=== PATIENT | male | born 1945 | race Caucasian/White ===

== ENCOUNTER → 2017-12-20 | Outpatient (CLI) | payer MEDICARE, OTHER ==
--- NOTE | 2017-12-20 20:45 | CONS ---
CONSULTATION DATE OF SERVICE: 12/20/2017 This patient is a 72-year-old gentleman who has been evaluated in the sleep center for obstructive sleep apnea-hypopnea syndrome. HISTORY OF PRESENT ILLNESS/SLEEP-WAKE EVALUATION: Patient was diagnosed with obstructive sleep apnea about 8 years ago. At that time he was recommended to be started on treatment with CPAP, but the patient was not able to tolerate CPAP at that time and did not use it. At present his sleep schedule on weekdays is from around 9 p.m. until 6:30 a.m., on weekends from about 9:30 p.m. to 6:30 a.m. No problem with falling asleep. He does watch TV in his bedroom and usually sleeps on the side position with his with loud snoring and witnessed episodes of stopped breathing during sleep. The patient wakes up from sleep 4 times with nocturia, heartburn or restless legs. He kicks around during sleep with some episodes of screaming during sleep. Positive history of possible out- of-dream movements. In the morning the patient wakes up tired, has problems with memory, concentration, irritability, depression. Cofield Sleepiness Scale is in a very high range at 20. He also has sleepiness while driving the car. The patient has episodes of occasional confusion, according to his . PAST MEDICAL HISTORY: 1. Hypertension. 2. Acid reflux. 3. Hyperlipidemia. 4. TIA about 3 years ago. 5. Episodes of dizziness. PAST SURGICAL HISTORY: 1. Right shoulder surgery. 2. Right knee surgery. SOCIAL HISTORY: Negative for smoking. Alcohol consumption occasional. MEDICATIONS: 1. Omeprazole. 2. Lisinopril. 3. Clopidogrel. 4. Atorvastatin. 5. Celecoxib. REVIEW OF SYSTEMS: Multiple awakenings from sleep, sleepiness during the day, episodes of problems with memory, sometimes swelling of the legs. FAMILY HISTORY: Hypertension, hyperlipidemia, arthritis, snoring, cancer, acid reflux, during sleep, restless legs. PHYSICAL EXAMINATION: GENERAL A pleasant gentleman without distress. VITAL SIGNS: BP 127/76, HR 80, RR 16, height 5 feet 7-1/2 inches, weight 240, BMI 37.0, temperature 97.1. Oxygen saturation at room air 95%. HEENT: PERRLA, EOMI. Evaluation of oropharynx showed tongue protrudes midline; low position of soft palate. Small oropharyngeal airspace. Some restriction of nasal breathing. NECK: Wide; 17-1/2 inches in circumference. LUNGS: Clear to percussion and to auscultation. Good air exchange. No wheezing or rhonchi. HEART: S1, S2 regular. No murmurs, gallops or rubs. ABDOMEN: Obese. EXTREMITIES : No clubbing or cyanosis. DIRECTORY CLERK: Awake, alert, and oriented X3. Cranial nerves 2 to 7 intact. There is no fasciculation or atrophy. noted. No focal deficits observed. IMPRESSION: 1. Snoring, witnessed episodes of stopped breathing during sleep, small oropharyngeal airspace, history of obstructive sleep apnea diagnosed about 8 years ago, wide neck, sleepiness during the day; obstructive sleep apnea-hypopnea syndrome. 2. Significant excessive daytime sleepiness. Cofield Sleepiness Scale increased to 20. Differential diagnosis includes hypersomnia, although no history of hypnagogic hallucinations, sleep paralysis or cataplexy. 3. History of abf-yg-neuge movements during sleep; possible indication of REM sleep behavioral disorder. 4. Hypertension. 5. Acid reflux. 6. Hyperlipidemia. 7. History of transient ischemic attack. 8. Episodes of confusion. 9. Dizziness spells. 10.Status post right shoulder repair. 11.Status post right knee surgery. PLAN: 1. Polysomnography for evaluation of patient's breathing during sleep. 2. CPAP/BiPAP titration if sleep study confirms obstructive sleep apnea-hypopnea syndrome. 3. Preferable position during sleep on the side. 4. No driving if patient feels any sleepiness. Patient is aware of civil and criminal liability for unsafe driving. 5. I will see patient for follow up visit to explain results of testing and following plan. Thank you very much for referring this patient for consultation. Sincerely, Dhiraj Schmidt MD, PhD, FAASM Diplomat of [place] [employer] [place] [employer] Spice Grinder of [facility] [place] MMODL / IJN: [id number] /
== END | disposition home or self-care (01) ==
LOC: SLEEP 15:41
PROVIDERS: ATTEND Internal Medicine
DX: G47.33 Obstructive sleep apnea (adult) (pediatric) (principal); G47.61 Periodic limb movement disorder; I10 Essential (primary) hypertension; K21.9 Gastro-esophageal reflux disease without esophagitis; E78.5 Hyperlipidemia, unspecified; Z86.73 Personal history of transient ischemic attack (TIA), and cerebral infarction without residual deficits; Z79.899 Other long term (current) drug therapy; Z79.01 Long term (current) use of anticoagulants; Z79.1 Long term (current) use of non-steroidal anti-inflammatories (NSAID); Z98.890 Other specified postprocedural states
CPT/HCPCS: 99211

== ENCOUNTER → 2018-03-21 | Outpatient (CLI) | payer MEDICARE ==
--- NOTE | 2018-03-21 14:14 | PN ---
PROGRESS NOTE DATE OF SERVICE: 03/21/18 72-year-old gentleman has been followed in Sleep Center for treatment of obstructive sleep apnea-hypopnea syndrome. Recently patient had a polysomnogram and CPAP titration. Polysomnogram showed severe obstructive sleep apnea-hypopnea syndrome with apnea-hypopnea index 38.4 per hour and oxygen desaturation to 83.7%. During CPAP titration, respiration was under control with a pressure of 10 cm of water. The patient received his CPAP unit and today is his first visit with his CPAP machine. He sleeps better with the machine. I checked his CPAP unit. CPAP/BiPAP pressure is 10 cm of water. Usage is 22/30 out of nights more than 4 hours. Average usage 5.5 hours. Sleep is 12 L/minute, which is normal. Apnea-hypopnea index only 2.8 with the machine, which is totally normal. No snoring with the machine. Bradley Sleepiness Scale today is still in the high range 19. Patient sometimes experiencing discomfort in his legs during the sleep. EMG showed 78.8 periodic limb movements per hour with 2.7 microarousals per hour during titration and 45.7 periodic limb movements per hour during diagnostic night. MEDICATIONS: Lipitor, aspirin, Plavix, lisinopril, Celebrex. PHYSICAL EXAM: Patient in no distress. BP 126/77, HR 73, RR 16, height 5 feet inches and weight 239.4, BMI 36.8, temperature 97.2, oxygen saturation on room air 95%. Oropharynx low position of soft palate. Neck Supple, no JVD. Thyroid is not palpable. LUNGS Clear to percussion and to auscultation. Good air exchange. No wheezing or rhonchi. HEART S1, S2 regular. No murmurs, gallops, or rubs. ABDOMEN: Obese. Soft and nontender. Bowel sounds are present. No organomegaly appreciated. EXTREMITIES No clubbing or cyanosis. BRASS CLEANER Awake, alert, and oriented X3. Cranial nerves 2 to 7 intact. There is no fasciculation or atrophy. noted. No focal deficits observed. IMPRESSION: 1. Severe obstructive sleep apnea-hypopnea syndrome on full control with CPAP at 10 cm of water. Patient demonstrated great compliance with treatment benefitting from treatment. 2. Severe periodic limb movements during titration and significant periodic limb movements during diagnostic night. The patient sometimes awakenings from sleep because of his leg discomfort. 3. Hypertension. 4. History of some out of dream movements, no any out of dream movements presently while he is on treatment with CPAP. 5. Acid reflux. 6. Hyperlipidemia. 7. Status post transient ischemic attack about 3 years ago. 8. Episodes of dizziness in the past. 9. Status post right shoulder repair. 10.Status post right knee surgery. PLAN: 1. Patient will continue to use CPAP equipment with the same regimen every night for the whole night. 2. Losing weight. 3. Sleep hygiene with regular time in bed for at least 8 hours. 4. No driving if feeling sleepiness. 5. I will start the patient on Mirapex with smallest dose for periodic limb movements. 6. Please check iron profile including ferritin level. Low level of iron may increase risk for periodic limb movements also. Thank you very much for allowing me to participate in management of your patient. Sincerely, Dhiraj Schmidt MD, PhD, FAASM Diplomat of [place] [employer] [place] [employer] Timber Harvester Operator of [facility] [place] MMODL / LINNEAN: [id number] /
== END | disposition home or self-care (01) ==
LOC: SLEEP 11:32
PROVIDERS: ATTEND Internal Medicine
DX: G47.33 Obstructive sleep apnea (adult) (pediatric) (principal); G47.61 Periodic limb movement disorder; I10 Essential (primary) hypertension; K21.9 Gastro-esophageal reflux disease without esophagitis; E78.5 Hyperlipidemia, unspecified; Z86.73 Personal history of transient ischemic attack (TIA), and cerebral infarction without residual deficits; Z86.69 Personal history of other diseases of the nervous system and sense organs; Z98.890 Other specified postprocedural states; Z79.01 Long term (current) use of anticoagulants; Z99.89 Dependence on other enabling machines and devices; Z79.82 Long term (current) use of aspirin; Z79.899 Other long term (current) drug therapy

== ENCOUNTER → 2019-10-31 | Outpatient (CLI) | payer MEDICARE, OTHER ==
[2019-10-31 08:26] LABS: Appearance,Urine Clear (Clear); Bilirubin,Urine Negative (Negative); Blood,Urine Negative (Negative); Color,Urine Light Yellow; Glucose,Urine (UA) Negative (Negative); Ketones,Urine Negative (Negative); Leukocyte Esterase,Urine Negative (Negative); Nitrite,Urine Negative (Negative); Protein,Urine Negative (Negative); Specific Gravity,Urine 1.015 (1.001-1.035); Urobilinogen,Urine <2.0 mg/dL (<2.0)
[2019-10-31 08:28] LABS: INR 0.9 (<1.2); Partial Thromboplastin Time 24.7 sec (22.0-30.0); Prothrombin Time 10.1 sec (9.0-12.0)
[2019-10-31 08:42] LABS: HCT 40.9 % (39.0-53.0); HGB 13.4 gm/dL (13.0-17.5); MCH 29.9 pg (25.0-35.0); MCHC 32.8 g/dL (31.0-37.0); MCV 91.1 fL (80.0-100.0); Mean Platelet Volume 7.3; Platelet Count 347 k/uL (150-450); RBC 4.49 m/uL (4.30-5.90); RDW 13.5 % (11.5-15.5); WBC 6.8 k/uL (3.8-10.6)
[2019-10-31 08:51] LABS: Albumin 4.7 g/dL (3.5-5.0); Potassium 4.7 mmol/L (3.5-5.1); Total Bilirubin 0.6 mg/dL (0.2-1.3); Total Protein 7.6 g/dL (6.3-8.2)
== END | disposition home or self-care (01) ==
LOC: LABPAT 07:57
PROVIDERS: ATTEND Orthopaedic Surgery
DX: Z01.812 Encounter for preprocedural laboratory examination (principal); Z01.818 Encounter for other preprocedural examination; Z79.01 Long term (current) use of anticoagulants
CPT/HCPCS: 36415; 80053; 81003; 85027; 85610; 85730; 87070; 93005

== ENCOUNTER 2019-11-17 07:31 | Day surgery (SDC) | payer MEDICARE ==
[2019-11-06 14:09] VITALS: BMI 32.5
[~2019-11-17 07:31] MED LIST: ACETAMINOPHEN TAB 500 MG TAB PO ONE; GABAPENTIN 300 MG CAP PO ONE; LIDOCAINE 1% 20 ML VIAL (10MG/ML) FOR IV START INTRADERMA PRN; MELOXICAM 7.5 MG TAB PO ONE; MIDAZOLAM 2 MG/2 ML VIAL IV PRN; ROPIVACAINE 246.25 MG, EPINEPHrine 0.5 MG, KETOROLAC 30 MG, cloNIDine HCL/PF 80 MCG, WA... MISCELLANE ONE; TRANEXAMIC ACID 1,000 MG in SODIUM CHLORIDE 0.9% 100 ML IVPB ONE; fentaNYL (PF) 50 MCG/ML 2 ML AMP IV PRN
[2019-11-17] MEDS: LACTATED RINGERS 1,000 ML IV SCH ×2 (08:30→20:50)
[2019-11-17] MEDS ORDERED: ONDANSETRON 4 MG/2 ML VIAL IVP PRN (08:39)
[2019-11-17] MEDS ORDERED: NA PHOS,M-B/NA PHOS,DI-BA 133 ML ENEMA RECTAL PRN (08:39)
[2019-11-17] MEDS ORDERED: HYDROcodone/APAP 5-325MG 1 EACH TAB PO PRN ×2 (08:39)
[2019-11-17] MEDS ORDERED: BISACODYL 10 MG SUPP RECTAL PRN (08:39)
[2019-11-17] MEDS ORDERED: hydrOXYzine PAMOATE 25 MG CAP PO PRN (08:39)
[2019-11-17] MEDS ORDERED: MAGNESIUM HYDROXIDE 2,400 MG/10 ML CUP PO PRN (08:39)
[2019-11-17] MEDS ORDERED: HYDROmorphone 0.5 MG/0.5 ML SYRINGE IVP PRN ×3 (08:39)
[2019-11-17] MEDS ORDERED: NALOXONE 0.4 MG/ML 1 ML VIAL IV PRN (08:39)
[2019-11-17] MEDS ORDERED: DIAZEPAM 5 MG TAB PO PRN (08:39)
[2019-11-17] MEDS ORDERED: fentaNYL (PF) 50 MCG/ML 2 ML AMP IV ONE (08:40)
[2019-11-17] MEDS ORDERED: MIDAZOLAM 2 MG/2 ML VIAL IV ONE (08:40)
[2019-11-17] MEDS ORDERED: MELOXICAM 7.5 MG TAB PO SCH (09:00)
[2019-11-17] MEDS ORDERED: GLYCOPYRROLATE 0.2 MG/ML 2 ML VIAL ONE (09:04)
[2019-11-17] MEDS ORDERED: SODIUM CHLORIDE 0.9% 100 ML BAG ONE (09:04)
[2019-11-17] MEDS ORDERED: PROPOFOL 10 MG/ML 20 ML VIAL IV ONE (09:04)
[2019-11-17] MEDS ORDERED: PHENYLEPHRINE-0.9% NACL SYG 1 MG/10 ML SYRINGE ONE (09:04)
[2019-11-17] MEDS ORDERED: fentaNYL (PF) 50 MCG/ML 2 ML AMP ONE (09:04)
[2019-11-17] MEDS ORDERED: MIDAZOLAM 2 MG/2 ML VIAL ONE (09:04)
[2019-11-17] MEDS ORDERED: TRANEXAMIC ACID 1,000 MG/10 ML VIAL ONE (09:04)
[2019-11-17] MEDS ORDERED: ceFAZolin 3,000 MG in SODIUM CHLORIDE 0.9% IRRIGATIO 3,000 ML IRRIGATION ONE (09:08)
[2019-11-17] MEDS ORDERED: ROPIVACAINE 0.2%-NS ON-Q PUMP 1,090 MG, EMPTY PAIN BALL 1 EACH MISCELLANE PRN (09:22)
--- NOTE | 2019-11-17 09:24 | P.ANPRN ---
Procedure Note - Anesthesia - Nerve Block Performed Right Adductor Canal Infusion Time Out Performed: Yes Date of Procedure: 11/17/19 Procedure Start Time: 08:40 Procedure Stop Time: 08:50 Location of Patient: PreOp Indication: Acute Post-Operative Pain, Requested by Surgeon Specifically requested for management of pain by : Gaston Ozuna Sedation Type: Sedate with meaningful contact maintained Preparation: Sterile Prep Position: Supine Catheter Depth at Skin (cm): 7 Catheter: Indwelling Needle Types: Pajunk Needle Gauge: 18 Ultrasound used to visualize needle placement: Yes Ultrasound used to observe medication spread: Yes Injectate: 0.5% Ropivacaine (see comment for volume) (20 cc) Blood Aspirated: No Pain Paresthesia on Injection Noted: No Resistance on Injection: Normal Image Stored and Saved: Yes Events: Uneventful and Well Tolerated
[2019-11-17] MEDS ORDERED: LACTATED RINGERS 1,000 ML IV ONE (10:05)
--- NOTE | 2019-11-17 10:26 | P.OP ---
Date of Procedure: 11/17/19 Preoperative Diagnosis: Severe osteoarthritis right knee Postoperative Diagnosis: Severe osteoarthritis right knee Procedure(s) Performed: Right total knee arthroplasty utilizing [employer] patient specific guides Implants: Hills and Nephew Journey II CR Oxinium cruciate retaining femoral component size 6, right Hills & Nephew Journey right nonporous tibial baseplate size 5 Hills & Nephew Journey II, XLPE Deep Dished articular insert, size 11 mm, Size 5-6 right Hills & Nephew Journey BCS resurfacing oval patellar component, 32 mm All components were cemented using Palacos R bone cement. Visionaire patient specific guides The articulation is Oxinium on polyethylene. Anesthesia: spinal Surgeon: Gaston Ozuna Correctional Counselor/Case Manager #1: Lisa Cortes Estimated Blood Loss (ml): 50 Pathology: other (Bone and cartilage) Condition: stable Disposition: PACU Indications for Procedure: After failure of conservative treatment we discussed the surgical and nonsurgical treatment options at length. Patient wishes to proceed with a total knee arthroplasty. Complications specific to this procedure were discussed at length, including but not limited to infection, bleeding, stiffness, and nerve injury. Patient is aware of all these complications and informed consent was obtained Operative Findings: The operative findings are consistent with severe degenerative arthritis of the right knee Description of Procedure: Patient was seen in the preoperative area consent was reviewed and operative site was marked with a skin marker. An adductor canal pain catheter was placed by anesthesia in the preoperative area. Patient was then brought to the operating room and given preoperative antibiotics intravenously. A spinal anesthetic was administered by the anesthesia department. A tourniquet was placed on the upper thigh and the lower extremity was prepped and draped in usual sterile fashion. A gram of transexamic acid was given. A universal timeout was then performed which confirmed the patient's name, surgical site, ALLERGIES, and consent. The lower extremity was then exsanguinated and tourniquet was inflated to 250 mmHg. A standard and anterior midline approach to the knee was performed. The skin and subcutaneous tissue was dissected down to the patellar tendon. A medial parapatellar arthrotomy was then performed. The knee was then extended, the patellar was everted, and the knee was again flexed. Anterior horns of both menisci were excised, and a release was performed to the posterior medial aspect of the knee. On gross visual inspection, there was complete loss of articular cartilage in the medial and patellofemoral joint spaces. There was also significant cartilage damage in the lateral compartment. There were multiple periarticular osteophytes. The patient specific guide was placed on the distal femur, and pinned in place. Using the patient specific guide, the distal femoral cut was performed. The cutting block was then removed and the cut was checked for flatness. The appropriate 5-in-1 cutting block was then pinned in place through the holes that were drilled through the patient specific guide. The anterior condyles were cut without notching. The posterior and chamfer cuts were performed while protecting the collateral ligaments. The cutting block was then removed. Attention was then directed to the tibia. The remaining ACL was removed with a Ronguer, and the tibia was then gently subluxed forward with a large bent knee retractor. Any remaining menisci was excised. The posterior lateral corner was cauterized in order to cauterize the lateral geniculate artery. The patient specific guide for the tibia was then placed and was held in place with pins. Pinholes were then placed for rotation of the tibial component as well. Proximal tibia was then cut and sized. Next trials were then placed with the appropriate-sized insert. The knee was able to fully extend and flex to 130 and was stable throughout all range of motion. The knee was then extended, patella everted. Patella was then measured, and then using an osteotomy guide, the patella was cut at the appropriate level. The patella was then measured and drilled and the patella trial was then placed. The knee was then taken through range of motion with the patella trial and the patella tracked normally. The knee was then extended patella trial was then removed and the patella was everted. Knee was then flexed and lug holes were drilled through the femoral trial and the femoral trial was then removed. The tibial was then exposed, and the tibial broach guide was then pinned in place after it was set for the appropriate rotation to allow for the most coverage without overhang. The tibia was then reamed and broached. The cut surfaces of bone were then irrigated with pulsatile lavage. The posterior structures were injected with the ropivacaine solution. The knee was also irrigated with Irrisept solution. The components were then opened, the cement was mixed, and the components were then cemented in place. The cement was allowed to harden with the knee in full extension. While the cement was hardening, the remaining soft tissues were then injected with a ropivacaine solution, which consisted of 246.25 mg of ropivacaine, 0.5 mg of epinephrine, 30 mg of Toradol, 80 g of clonidine, and 48.45 mL of sterile water, for a total of 100 mL of fluid injected. After the cemented hardened. The tourniquet was released, and hemostasis was obtained. A second gram of transexamic acid was given. The knee was again irrigated. The knee was again taken through range of motion and found to be stable throughout all range of motion of 0-130, and the patella tracked normally. The fascia was then closed with #2 strata fix suture. The subcutaneous tissue was closed with 3-0 Vicryl and 3-0 strata fix. Dermabond glue was used for the skin and placed with the knee in flexion. The patient was placed in a sterile silver dressing. Patient was then transferred to recovery room in stable condition. The visitor information assistant WILLAM Gaona was required due the complexity surgery and the need for a skilled surgical scrub technologist. She assisted in positioning, draping, retraction, and closure of the wound.
--- NOTE | 2019-11-17 11:32 | XR ---
EXAMINATION TYPE: XR knee limited RT DATE OF EXAM: 11/17/2019 CLINICAL HISTORY: Right knee pain and arthritis status post total knee replacement. TECHNIQUE: Portable AP and crosstable lateral views of the right knee are obtained immediately posto peratively. COMPARISON: None FINDINGS: Metallic hardware from total right knee arthroplasty is seen and appears satisfactory in a lignment and position. There is evidence of recent surgery with diffuse subcutaneous gas and soft ti ssue swelling noted. IMPRESSION: METALLIC HARDWARE FROM TOTAL RIGHT KNEE ARTHROPLASTY IS SATISFACTORY IN ALIGNMENT.
[2019-11-17] MEDS ORDERED: ONDANSETRON 4 MG/2 ML VIAL IVP ONE (14:00)
[2019-11-17 19:30] VITALS: RESP 18
[2019-11-17] MEDS ORDERED: ATORVASTATIN 40 MG TAB PO SCH (21:00)
[2019-11-17] MEDS ORDERED: SENNOSIDES-DOCUSATE SODIUM 1 EACH TAB PO SCH (21:00)
[2019-11-17] MEDS: ASPIRIN 81 MG PO SCH (21:21)
[2019-11-17] MEDS: SODIUM CHLORIDE 0.9% 1,000 ML IV SCH (21:23)
--- NOTE | 2019-11-17 22:00 | P.CONS ---
History of Present Illness - Reason for Consult Consult date: 11/17/19 Medical management Requesting physician: Gaston Ozuna - Chief Complaint Right total knee arthroplasty - History of Present Illness Consultation: This is a pleasant 74-year-old patient of Dr. Henry. Chronic stable medical conditions include GERD, hypertension, hyperlipidemia and osteoarthritis in other joints 2. Has undergone a right total arthroplasty. Postprocedure pain is controlled. No nausea vomiting. Did tolerate her pain. No chest pain. Denies any cardiac history. Laying in bed comfortable. Review of systems: GEN.: None EYES: None HEENT: None NECK: None RESPIRATORY: None CARDIOVASCULAR: None GASTROINTESTINAL: None GENITOURINARY: None MUSCULOSKELETAL: [Joint pains LYMPHATICS: None HEMATOLOGICAL: None PSYCHIATRY: None NEUROLOGICAL: None Social history: Does not smoke. Alcohol occasionally. . Does help out on the farm Physical examination: VITAL SIGNS: 97.7, 71, 18, 126/77, 94% on room air GENERAL: BMI 33.2, propped up in bed comfortable. EYES: Pupils equal. Conjunctiva normal. HEENT: External appearance of nose and ears normal, oral cavity grossly normal. NECK: JVD not raised; masses not palpable. HEART: First and second heart sounds are normal; no edema. LUNGS: Respiratory rate normal; clear to auscultation. ABDOMEN: Soft, nontender, liver spleen not palpable, no masses palpable. PSYCH: Alert and oriented x3; mood and affect normal. NEUROLOGICAL: Cranial nerves grossly intact; no facial asymmetry, power and sensation grossly intact. 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 Patient is on aspirin for DVT prophylaxis per orthopedics. Patient should have his renal function checks within 3 days following discharge and follow-up his family doctor within the week. Care was discussed with the patient question were answered. Thank you Dr. Ozuna Past Medical History Past Medical History: CVA/TIA, GERD/Reflux, Hyperlipidemia, Hypertension, Osteoarthritis (OA) Additional Past Medical History / Comment(s): TIA 4 yrs ago-balance effected if getting up to fast, History of Any Multi-Drug Resistant Organisms: None Reported Past Surgical History: Orthopedic Surgery Additional Past Surgical History / Comment(s): arthroscopy rt knee, rotator cuff rt shoulder, Past Anesthesia/Blood Transfusion Reactions: No Reported Reaction Past Psychological History: No Psychological Hx Reported Smoking Status: Never smoker Past Alcohol Use History: Occasional Past Drug Use History: None Reported - Past Family History Father Family Medical History: Cancer Medications and Allergies Home Medications Medication Instructions Recorded Confirmed Type Atorvastatin [Lipitor] 40 mg PO HS 02/02/15 11/17/19 History Clopidogrel [Plavix] 75 mg PO DAILY 02/02/15 11/17/19 History Lisinopril-Hctz 20-25 mg 1 tab PO DAILY 02/02/15 11/17/19 History [Zestoretic 20-25] Aspirin [Adult Low Dose Aspirin EC] 81 mg PO DAILY 11/06/19 11/17/19 History Ibuprofen 600 mg PO BID PRN 11/06/19 11/17/19 History Allergies Allergy/AdvReac Type Severity Reaction Status Date / Time No Known Allergies Allergy Verified 11/17/19 08:10 Physical Exam Vitals: Vital Signs Temp Pulse Resp BP Pulse Ox 11/17/19 19:30 97.7 F 71 18 126/77 94 L 11/17/19 16:00 65 16 11/17/19 15:39 97.9 F 72 18 151/77 93 L 11/17/19 12:30 65 16 139/75 99 11/17/19 12:00 68 16 131/74 98 11/17/19 11:45 77 16 129/64 92 L 11/17/19 11:30 74 16 123/65 93 L 11/17/19 11:15 72 16 123/63 95 11/17/19 10:59 96.8 F L 77 16 118/64 95 11/17/19 08:55 70 16 121/59 100 11/17/19 07:56 98.3 F 84 16 169/76 96 Intake and Output 11/17/19 11/17/19 11/17/19 06:59 14:59 22:59 Intake Total 1651 360 Output Total 50 Balance 1601 360 Intake: IV 1651 Oral 360 Output: Estimated Blood Loss 50 Other: Weight 102 kg 102 kg
[2019-11-18] MEDS: SODIUM CHLORIDE 0.9% 1,000 ML IV SCH (00:11)
[2019-11-18 02:08] VITALS: PULSE 62; TEMP 98.6
[2019-11-18 07:50] VITALS: BP 133/78
[2019-11-18 07:57] LABS: Basophils # (A) 0.2 k/uL (0-0.2); Basophils % (A) 2 %; Eosinophils # (A) 0.2 k/uL (0-0.7); Eosinophils % (A) 2 %; HCT 36.9 % (39.0-53.0); HGB 11.8 gm/dL (13.0-17.5); Lymphocytes % (A) 12 %; MCH 29.4 pg (25.0-35.0); MCV 91.7 fL (80.0-100.0); Mean Platelet Volume 7.9; Monocytes # (A) 0.5 k/uL (0-1.0); Monocytes % (A) 6 %; Neutrophils # (A) 6.6 k/uL (1.3-7.7); Neutrophils % (A) 77 %; Platelet Count 274 k/uL (150-450); RBC 4.02 m/uL (4.30-5.90); RDW 13.5 % (11.5-15.5); WBC 8.6 k/uL (3.8-10.6)
--- NOTE | 2019-11-18 08:11 | P.PN ---
Progress Note - Text Anesthesia POD 1 0740. Patient is status post right TKR under spinal anesthesia with a right adductor canal catheter placed for postoperative pain relief. With ropivacaine 0.2% running at 8 cc's per hour, the patient's VAS is (0, 2). Catheter site is clean dry and intact.
[2019-11-18] MEDS ORDERED: CLOPIDOGREL 75 MG TAB PO SCH (09:00)
[2019-11-18] MEDS: ASPIRIN 81 MG PO SCH (09:03)
--- NOTE | 2019-11-18 09:21 | P.DS ---
Providers Expected date of discharge: 11/18/19 Attending physician: Gaston Ozuna Consults: 11/17/19 08:39 Consult Physician Routine Consulting Provider: Jimy Morales Consult Reason/Comments: medical management and anticoagulation Do you want consulting provider notified?: Yes Primary care physician: Micky Henry - Discharge Diagnosis(es) (1) Osteoarthritis of right knee Current Visit: Yes Status: Acute (2) S/P total knee arthroplasty Current Visit: Yes Status: Acute Hospital Course: This is a 74-year-old male with known history of degenerative arthritis of the right knee. The patient presents for evaluation. After discussion and conside ration patient elects to proceed with total knee arthroplasty. The patient is seen preoperatively by Dr. Ozuna and medically cleared for surgery by their primary care physician. Patient is admitted to [facility] on 11/17/2019 for total knee arthroplasty. The procedures performed without complication or sequelae. The patient is doing well postoperatively. Labs and vital signs are stable on day of discharge. On day of discharge patient's knee incision is healing well. There is minimal erythema. There is no drainage noted at this time. There is minimal soft tissue swelling to the knee. Patient has full foot and ankle motion without difficulty or pain. Calf is soft and nontender to palpation. Neurovascular status to the right lower extremity is intact. Patient will resume his Plavix with aspirin for DVT prophylaxis. Patient is discharged home in good condition. Opioid start talking form is reviewed and signed at patient bedside. Please see med rec for accurate list of home medications. Plan - Discharge Summary Discharge Rx Participant: No New Discharge Prescriptions: New Aspirin [Adult Low Dose Aspirin EC] 81 mg PO BID 30 Days #60 tablet. HYDROcodone/APAP 5-325MG [[place] 5-325] 1 - 2 tab PO Q6HR PRN #56 tab PRN Reason: Pain Sennosides [Senokot] 2 tab PO DAILY PRN #60 tablet PRN Reason: Constipation No Action Clopidogrel [Plavix] 75 mg PO DAILY Lisinopril-Hctz 20-25 mg [Zestoretic 20-25] 1 tab PO DAILY Atorvastatin [Lipitor] 40 mg PO HS Aspirin [Adult Low Dose Aspirin EC] 81 mg PO DAILY Ibuprofen 600 mg PO BID PRN PRN Reason: Pain Discharge Medication List Atorvastatin [Lipitor] 40 mg PO HS 02/02/15 [History] Clopidogrel [Plavix] 75 mg PO DAILY 02/02/15 [History] Lisinopril-Hctz 20-25 mg [Zestoretic 20-25] 1 tab PO DAILY 02/02/15 [History] Aspirin [Adult Low Dose Aspirin EC] 81 mg PO DAILY 11/06/19 [History] Ibuprofen 600 mg PO BID PRN 11/06/19 [History] Aspirin [Adult Low Dose Aspirin EC] 81 mg PO BID 30 Days #60 tablet. 11/18/19 [Rx] HYDROcodone/APAP 5-325MG [[place] 5-325] 1 - 2 tab PO Q6HR PRN #56 tab 11/18/19 [Rx] Sennosides [Senokot] 2 tab PO DAILY PRN #60 tablet 11/18/19 [Rx] Follow up Appointment(s)/Referral(s): Micky Henry MD [Primary Care Provider] - 1 Week Gaston Ozuna DO [Doctor of Osteopathic Medicine] - 12/01/19 9:20 am Ambulatory/Diagnostic Orders: Continuous Passive Motion (CPM) Machine [DME.AMB1] Time Frame: 3 Weeks, Location: None Selected Activity/Diet/Wound Care/Special Instructions: BMP in 3 days upon discharge. Weightbearing as tolerated with a walker. CPM 5-6h daily. Leave dressing intact. May be removed by home care nurse or by patient in 10 days. May shower with dressing on. Plavix and aspirin 81mg BID for DVT prophylaxis. Recommend use of compression stockings daily for at least 2 weeks during the day to help prevent swelling and blood clots. May remove at night before sleeping. Please follow up with [facility] and call with any questions or concerns, . Discharge Disposition: HOME WITH HOME HEALTH SERVICES
--- NOTE | 2019-11-19 00:11 | P.PN ---
Progress Note - Text Progress Note Date: 11/18/19 - Chief Complaint Right total knee arthroplasty Interval history: This is a pleasant 74-year-old patient of Dr. Henry. Chronic stable medical conditions include GERD, hypertension, hyperlipidemia and osteoarthritis in other joints 2. Has undergone a right total arthroplasty. Today-sitting up. Feeling stable. No nausea vomiting. Did tolerate her diet. Some pain of the operative site. Did work for therapy. Review of systems: Was done for constitutional, cardiovascular, GI, pulmonary. relevant finding as above Current medications reviewed in today's electronic records Physical examination: VITAL SIGNS: 98.6, 62, 18, 133/78, 33% room air GENERAL: Sitting up in a chair, comfortable. EYES: Pupils equal. Conjunctiva normal. HEENT: External appearance of nose and ears normal, oral cavity grossly normal. NECK: JVD not raised; masses not palpable. HEART: First and second heart sounds are normal; no edema. LUNGS: Respiratory rate normal; clear to auscultation. ABDOMEN: Soft, nontender, liver spleen not palpable, no masses palpable. PSYCH: Alert and oriented x3; mood and affect normal. 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 Continue current medication treatment plan. Follow-up with PCP in a week Thank you Dr. Ozuna
== END 2019-11-18 13:54 | disposition home health service (06) ==
LOC: OR 07:31 → 4SSUR 10:57 → OR 11-18 13:54
PROVIDERS: ATTEND Orthopaedic Surgery
DX: I10 Essential (primary) hypertension (principal); M17.11 Unilateral primary osteoarthritis, right knee; K21.9 Gastro-esophageal reflux disease without esophagitis; E78.5 Hyperlipidemia, unspecified; I12.9 Hypertensive chronic kidney disease with stage 1 through stage 4 chronic kidney disease, or unspecified chronic kidney disease; N18.3 Chronic kidney disease, stage 3 (moderate); R26.81 Unsteadiness on feet; R94.4 Abnormal results of kidney function studies; Z97.3 Presence of spectacles and contact lenses; Z83.3 Family history of diabetes mellitus; Z82.49 Family history of ischemic heart disease and other diseases of the circulatory system; Z86.73 Personal history of transient ischemic attack (TIA), and cerebral infarction without residual deficits; N52.9 Male erectile dysfunction, unspecified; G89.29 Other chronic pain; M54.9 Dorsalgia, unspecified; E66.9 Obesity, unspecified; Z68.32 Body mass index [BMI] 32.0-32.9, adult; Z79.02 Long term (current) use of antithrombotics/antiplatelets; Z79.82 Long term (current) use of aspirin; Z79.899 Other long term (current) drug therapy; Z79.1 Long term (current) use of non-steroidal anti-inflammatories (NSAID)
CPT/HCPCS: 97161; 64448; 76942; 85025; 88300; 73560; 27447; C1713; C1776; J2250; J0171; J0690 ×3; J2405; J3010; J1885; J2795 ×2; J0735

== ENCOUNTER 2020-01-02 17:15 | Inpatient (IN) | payer MEDICARE, OTHER ==
[2020-01-02] MEDS ORDERED: SODIUM CHLORIDE 0.9% 1,000 ML IV STA (17:49)
[2020-01-02] MEDS ORDERED: SODIUM CHLORIDE 0.9% 500 ML 500 ML IV STA (17:49)
--- NOTE | 2020-01-02 17:49 | ED ---
Recheck HPI - General Chief Complaint: Recheck/Abnormal Lab/Rx Stated Complaint: Chest Pain Time Seen by Provider: 01/02/20 17:36 Source: patient, EMS, RN notes reviewed, old records reviewed Mode of arrival: EMS Limitations: no limitations - History of Present Illness Initial Comments: This is a 74-year-old male presents today for evaluation of weakness not feeling well dizziness, patient is a facility transfer from outside hospital. Patient has no complaints of chest pain currently but had elevated troponin per outside facility with OB have some EKG changes. Patient is at this time he feels well his blood pressures blood prior facility but he states with bolus of fluid resuscitation feels better denying any other complaints MD Complaint: abnormal lab (Elevated troponin low blood pressure) -: unknown Returns Today for: other (Patient was transferred to our facility for further evaluation by cardiology) Symptoms Since Prior Visit: no new symptoms Associated Symptoms: chest pain (Some chest pain and dizziness and prior facility), shortness of breath Treatments Prior to Arrival: other medications (IV hydration) - Related Data Home Medications Medication Instructions Recorded Confirmed Atorvastatin [Lipitor] 40 mg PO HS 02/02/15 11/17/19 Clopidogrel [Plavix] 75 mg PO DAILY 02/02/15 11/17/19 Lisinopril-Hctz 20-25 mg 1 tab PO DAILY 02/02/15 11/17/19 [Zestoretic 20-25] Aspirin [Adult Low Dose Aspirin EC] 81 mg PO DAILY 11/06/19 11/17/19 Ibuprofen 600 mg PO BID PRN 11/06/19 11/17/19 Previous Rx's Medication Instructions Recorded Aspirin [Adult Low Dose Aspirin EC] 81 mg PO BID 30 Days #60 tablet. 11/18/19 HYDROcodone/APAP 5-325MG [[place] 1 - 2 tab PO Q6HR PRN #56 tab 11/18/19 5-325] Sennosides [Senokot] 2 tab PO DAILY PRN #60 tablet 11/18/19 Allergies Allergy/AdvReac Type Severity Reaction Status Date / Time No Known Allergies Allergy Verified 01/02/20 17:34 Review of Systems ROS Statement: Those systems with pertinent positive or pertinent negative responses have been documented in the HPI. ROS Other: All systems not noted in ROS Statement are negative. Past Medical History Past Medical History: Hyperlipidemia, Hypertension History of Any Multi-Drug Resistant Organisms: None Reported Past Surgical History: Orthopedic Surgery Additional Past Surgical History / Comment(s): shoulder, knee Past Psychological History: No Psychological Hx Reported Smoking Status: Never smoker Past Alcohol Use History: Occasional Past Drug Use History: None Reported General Exam Limitations: no limitations General appearance: alert, in no apparent distress Head exam: Present: atraumatic, normocephalic, normal inspection Eye exam: Present: normal appearance, PERRL, EOMI. Absent: scleral icterus, conjunctival injection, periorbital swelling ENT exam: Present: normal exam, mucous membranes moist Neck exam: Present: normal inspection. Absent: tenderness, meningismus, lymphadenopathy Respiratory exam: Present: normal lung sounds bilaterally. Absent: respiratory distress, wheezes, rales, rhonchi, stridor Cardiovascular Exam: Present: regular rate, normal rhythm, normal heart sounds. Absent: systolic murmur, diastolic murmur, rubs, gallop, clicks GI/Abdominal exam: Present: soft, normal bowel sounds. Absent: distended, ten derness, guarding, rebound, rigid Extremities exam: Present: normal inspection, full ROM, normal capillary refill. Absent: tenderness, pedal edema, joint swelling, calf tenderness Back exam: Present: normal inspection Neurological exam: Present: alert, oriented X3, CN II-XII intact Psychiatric exam: Present: normal affect, normal mood Skin exam: Present: warm, dry, intact, normal color. Absent: rash Course Vital Signs 01/02/20 01/02/20 17:28 18:00 Temperature 98.0 F Pulse Rate 84 79 Respiratory 20 19 Rate Blood Pressure 121/78 106/74 O2 Sat by Pulse 98 96 Oximetry - Reevaluation(s) Reevaluation #1: 01/02/20 18:11 Medical records reviewed 01/02/20 19:38 Outpatient lab values are reviewed and transfer paperwork is reviewed - Consultations Consultation #1: Spoke with Dr. Morales is agreeable for admission Medical Decision Making - Medical Decision Making 74 male to the ER for evaluation patient will be admitted for cardiology to evaluate further regarding elevated troponin patient is in acute renal failure dehydration weakness. - Lab Data Result diagrams: 01/02/20 17:55 01/02/20 17:55 Lab Results 01/02/20 01/02/20 01/02/20 Range/Units 17:55 17:55 17:55 WBC 14.0 H (3.8-10.6) k/uL RBC 4.00 L (4.30-5.90) m/uL Hgb 11.5 L (13.0-17.5) gm/dL Hct 35.5 L (39.0-53.0) % MCV 88.6 (80.0-100.0) fL MCH 28.7 (25.0-35.0) pg MCHC 32.4 (31.0-37.0) g/dL RDW 13.9 (11.5-15.5) % Plt Count 330 (150-450) k/uL Neutrophils % 75 % Lymphocytes % 18 % Monocytes % 5 % Eosinophils % 1 % Basophils % 0 % Neutrophils # 10.5 H (1.3-7.7) k/uL Lymphocytes # 2.5 (1.0-4.8) k/uL Monocytes # 0.6 (0-1.0) k/uL Eosinophils # 0.2 (0-0.7) k/uL Basophils # 0.0 (0-0.2) k/uL PT (9.0-12.0) sec INR (<1.2) APTT (22.0-30.0) sec Sodium 135 L (137-145) mmol/L Potassium 4.7 (3.5-5.1) mmol/L Chloride 105 (98-107) mmol/L Carbon Dioxide 18 L (22-30) mmol/L Anion Gap 12 mmol/L BUN 74 H (9-20) mg/dL Creatinine 2.34 H (0.66-1.25) mg/dL Est GFR (CKD-EPI)AfAm 30 (>60 ml/min/1.73 sqM) Est GFR (CKD-EPI)NonAf 26 (>60 ml/min/1.73 sqM) Glucose 96 (74-99) mg/dL Calcium 8.6 (8.4-10.2) mg/dL Magnesium 1.9 (1.6-2.3) mg/dL Total Bilirubin 0.4 (0.2-1.3) mg/dL AST 23 (17-59) U/L ALT 14 (4-49) U/L Alkaline Phosphatase 66 (38-126) U/L NT-Pro-B Natriuret Pep 466 pg/mL Total Protein 6.3 (6.3-8.2) g/dL Albumin 3.7 (3.5-5.0) g/dL Lipase 1090 H (23-300) U/L 01/02/20 Range/Units 17:55 WBC (3.8-10.6) k/uL RBC (4.30-5.90) m/uL Hgb (13.0-17.5) gm/dL Hct (39.0-53.0) % MCV (80.0-100.0) fL MCH (25.0-35.0) pg MCHC (31.0-37.0) g/dL RDW (11.5-15.5) % Plt Count (150-450) k/uL Neutrophils % % Lymphocytes % % Monocytes % % Eosinophils % % Basophils % % Neutrophils # (1.3-7.7) k/uL Lymphocytes # (1.0-4.8) k/uL Monocytes # (0-1.0) k/uL Eosinophils # (0-0.7) k/uL Basophils # (0-0.2) k/uL PT 10.0 (9.0-12.0) sec INR 1.0 (<1.2) APTT 21.8 L (22.0-30.0) sec Sodium (137-145) mmol/L Potassium (3.5-5.1) mmol/L Chloride (98-107) mmol/L Carbon Dioxide (22-30) mmol/L Anion Gap mmol/L BUN (9-20) mg/dL Creatinine (0.66-1.25) mg/dL Est GFR (CKD-EPI)AfAm (>60 ml/min/1.73 sqM) Est GFR (CKD-EPI)NonAf (>60 ml/min/1.73 sqM) Glucose (74-99) mg/dL Calcium (8.4-10.2) mg/dL Magnesium (1.6-2.3) mg/dL Total Bilirubin (0.2-1.3) mg/dL AST (17-59) U/L ALT (4-49) U/L Alkaline Phosphatase (38-126) U/L NT-Pro-B Natriuret Pep pg/mL Total Protein (6.3-8.2) g/dL Albumin (3.5-5.0) g/dL Lipase (23-300) U/L - EKG Data -: EKG Interpreted by Me (EKG shows sinus of 83, DC 170, QRS 90, QTc 460) Critical Care Time Critical Care Time: Yes Total Critical Care Time: 31 Disposition Clinical Impression: Dizziness, Elevated troponin, ARF (acute renal failure), Weakness Disposition: ADMITTED IP TO THIS [facility] Condition: Good Is patient prescribed a controlled substance at d/c from ED?: No Referrals: Micky Henry MD [Primary Care Provider] - 1-2 days
[2020-01-02 18:28] LABS: Basophils % (A) 0 %; Eosinophils # (A) 0.2 k/uL (0-0.7); Eosinophils % (A) 1 %; HCT 35.5 % (39.0-53.0); HGB 11.5 gm/dL (13.0-17.5); Lymphocytes # (A) 2.5 k/uL (1.0-4.8); Lymphocytes % (A) 18 %; MCH 28.7 pg (25.0-35.0); MCHC 32.4 g/dL (31.0-37.0); MCV 88.6 fL (80.0-100.0); Mean Platelet Volume 7.3; Monocytes # (A) 0.6 k/uL (0-1.0); Monocytes % (A) 5 %; Neutrophils # (A) 10.5 k/uL (1.3-7.7); Neutrophils % (A) 75 %; Platelet Count 330 k/uL (150-450); RDW 13.9 % (11.5-15.5)
[2020-01-02 18:42] LABS: Partial Thromboplastin Time 21.8 sec (22.0-30.0)
[2020-01-02 18:54] LABS: Albumin 3.7 g/dL (3.5-5.0); Calcium 8.6 mg/dL (8.4-10.2); Magnesium 1.9 mg/dL (1.6-2.3); Potassium 4.7 mmol/L (3.5-5.1); Total Bilirubin 0.4 mg/dL (0.2-1.3); Total Protein 6.3 g/dL (6.3-8.2)
[2020-01-02] MEDS ORDERED: ASPIRIN 81 MG PO STA (19:38)
[2020-01-02] MEDS ORDERED: NITROGLYCERIN SL TABS 0.4 MG TAB SUBLINGUAL PRN (19:38)
[2020-01-02] MEDS: SODIUM CHLORIDE 0.9% 1,000 ML IV SCH (19:59)
[2020-01-03] MEDS: SODIUM CHLORIDE 0.9% 1,000 ML IV SCH ×2 (05:45→15:12)
[2020-01-03 06:42] LABS: HCT 32.4 % (39.0-53.0); HGB 10.5 gm/dL (13.0-17.5); MCH 28.8 pg (25.0-35.0); MCHC 32.4 g/dL (31.0-37.0); MCV 89.1 fL (80.0-100.0); Mean Platelet Volume 7.1; Platelet Count 260 k/uL (150-450); RBC 3.64 m/uL (4.30-5.90); RDW 14.3 % (11.5-15.5); WBC 10.2 k/uL (3.8-10.6)
[2020-01-03 06:55] LABS: Calcium 8.3 mg/dL (8.4-10.2); Potassium 4.6 mmol/L (3.5-5.1)
--- NOTE | 2020-01-03 08:39 | P.CRDCN ---
History of Present Illness Consult date: 01/03/20 Requesting physician: Jimy Morales Reason for Consult (text): Abnormal troponin Chief complaint: Blurred vision History of present illness: This is a pleasant 74-year-old gentleman with history of hypertension, hyperlipidemia, BPH, GERD, osteoarthritis, obstructive sleep apnea, prior TIA, nonsmoker, who presented to [facility] with symptoms of blurred vision he denies any overt dizziness or lightheadedness, no shortness of breath, no chest discomfort, no palpitations. Patient states he does get a lightheaded feeling when he goes from a sitting to standing position too quickly but he states that he's been experiencing this for several years. Patient does state that he underwent right knee surgery in November of this year. Overall the patient states he's been eating well at home, but has not been drinking enough fluids, he denies any diarrhea, no vomiting. His blood pressure on presentation to [facility] was 70/40 with a heart rate in the 100, afebrile, lab data from [facility], sodium 136, potassium 4.5, chloride 101, CO2 20, glucose 142, BUN 73, creatinine 2.6, white blood cell count 15.6, hemoglobin 11.7, hematocrit 35.7, platelet count 333. Magnesium 1.8, troponin 0.043, chest x-ray did not reveal any acute process. EKG on presentation here showed a normal sinus rhythm with peaked T waves. Lab data performed on arrival here, white b lood cell count 14, 10.2 this morning, hemoglobin 11.5, 10.5 this morning, platelet count 260. Sodium 135, potassium 4.7, BUN 74, creatinine 2.3, magnesium 1.9. Troponin 0.052, 0.055, 0.035. Lipase 1090. AST and ALT are normal. This morning's labs after hydration, sodium 136, potassium 4.6, BUN 62, creatinine 1.8. At pressure this morning 92/56 with a heart rate in the 80s, 98% on room air. Past Medical History Past Medical History: Hyperlipidemia, Hypertension History of Any Multi-Drug Resistant Organisms: None Reported Past Surgical History: Orthopedic Surgery Additional Past Surgical History / Comment(s): shoulder, knee Past Psychological History: No Psychological Hx Reported Smoking Status: Never smoker Past Alcohol Use History: Occasional Past Drug Use History: None Reported Medications and Allergies Home Medications Medication Instructions Recorded Confirmed Type Atorvastatin [Lipitor] 40 mg PO HS 02/02/15 01/02/20 History Clopidogrel [Plavix] 75 mg PO DAILY 02/02/15 01/02/20 History Lisinopril-Hctz 20-25 mg 1 tab PO DAILY 02/02/15 01/02/20 History [Zestoretic 20-] Aspirin [Adult Low Dose Aspirin EC] 81 mg PO DAILY 11/06/19 01/02/20 History Allergies Allergy/AdvReac Type Severity Reaction Status Date / Time No Known Allergies Allergy Verified 01/02/20 20:09 Physical Exam Vitals: Vital Signs Temp Pulse Pulse Resp BP BP Pulse Ox 01/03/20 08:00 97.5 F L 83 20 93/56 98 01/03/20 04:36 18 01/03/20 04:00 97.9 F 62 18 91/49 98 01/03/20 00:38 18 01/02/20 22:48 97.4 F L 67 18 98/50 97 01/02/20 21:39 97.9 F 86 15 111/72 97 01/02/20 19:59 98.1 F 68 15 94/65 97 01/02/20 18:00 79 19 106/74 96 01/02/20 17:28 98.0 F 84 20 121/78 98 Intake and Output 01/02/20 01/03/20 01/03/20 22:59 06:59 14:59 Other: Voiding Method Toilet # Voids 2 Weight 97.522 kg PHYSICAL EXAMINATION: GENERAL: 74-year-old gentleman in no acute distress at the time of my examination HEENT: Head is atraumatic, normocephalic. Pupils equal, round. Sclera anicteric. Conjunctiva are clear. Mucous membranes of the mouth are moist. Neck is supple. There is no elevated jugular venous pressure. No carotid bruit is heard. HEART EXAMINATION: Heart S1 S2 1 systolic murmur is heard CHEST EXAMINATION: Lungs are clear to auscultation and precussion. No chest wall tenderness is noted on palpation or with deep breathing. ABDOMEN: Soft, nontender. Bowel sounds are heard. No organomegaly noted. EXTREMITIES: 2+ peripheral pulses with no evidence of peripheral edema and no calf tenderness noted. NEUROLOGIC patient is awake, alert and oriented 3 . . Results 01/03/20 06:30 01/03/20 05:52 Cardiac Enzymes 01/02/20 01/02/20 01/02/20 Range/Units 17:55 17:55 23:40 AST 23 (17-59) U/L Troponin I 0.052 H* 0.055 H* (0.000-0.034) ng/mL 01/03/20 Range/Units 05:52 AST (17-59) U/L Troponin I 0.035 H* (0.000-0.034) ng/mL Coagulation 01/02/20 Range/Units 17:55 PT 10.0 (9.0-12.0) sec APTT 21.8 L (22.0-30.0) sec Lipids 01/03/20 Range/Units 05:52 Triglycerides 125 (<150) mg/dL Cholesterol 134 (<200) mg/dL HDL Cholesterol 35 L (40-60) mg/dL CBC 01/02/20 01/03/20 Range/Units 17:55 06:30 WBC 14.0 H 10.2 (3.8-10.6) k/uL RBC 4.00 L 3.64 L (4.30-5.90) m/uL Hgb 11.5 L 10.5 L (13.0-17.5) gm/dL Hct 35.5 L 32.4 L (39.0-53.0) % Plt Count 330 260 (150-450) k/uL Comprehensive Metabolic Panel 01/02/20 01/03/20 Range/Units 17:55 05:52 Sodium 135 L 136 L (137-145) mmol/L Potassium 4.7 4.6 (3.5-5.1) mmol/L Chloride 105 108 H (98-107) mmol/L Carbon Dioxide 18 L 19 L (22-30) mmol/L BUN 74 H 62 H (9-20) mg/dL Creatinine 2.34 H 1.80 H (0.66-1.25) mg/dL Glucose 96 85 (74-99) mg/dL Calcium 8.6 8.3 L (8.4-10.2) mg/dL AST 23 (17-59) U/L ALT 14 (4-49) U/L Alkaline Phosphatase 66 (38-126) U/L Total Protein 6.3 (6.3-8.2) g/dL Albumin 3.7 (3.5-5.0) g/dL Current Medications Generic Name Dose Route Start Last Admin Trade Name Kevinq PRN Reason Stop Dose Admin Aspirin 325 mg 01/03/20 09:00 Aspirin PO DAILY MYLES Sodium Chloride 1,000 mls @ 100 mls/hr 01/02/20 19:45 01/03/20 05:45 Saline 0.9% IV Not Given .Q10H MYLES Nitroglycerin 0.4 mg 01/02/20 19:38 Nitrostat SUBLINGUAL Q5M PRN Chest Pain Intake and Output 01/02/20 01/03/20 01/03/20 22:59 06:59 14:59 Other: Voiding Method Toilet # Voids 2 Weight 97.522 kg 01/03/20 06:30 01/03/20 05:52 EKG Interpretations (text) EKG shows a normal sinus rhythm with no acute changes, inferior Q waves noted Assessment and Plan Plan: Assessment and plan #1 symptoms of blurred vision with no associated dizziness or lightheadedness #2 hypotension could be secondary to dehydration #3 renal insufficiency, likely secondary to dehydration #4 hypertension #5 hyperlipidemia #6 obstructive sleep apnea #7 recent right knee surgery in November of this year #8 GERD #9 prior TIA #10 abnormal troponins, could be secondary to abnormal renal function Plan We will obtain an echocardiogram with Doppler study. Continue hydration, continue to monitor renal function. We will check orthostatic heart rate and blood pressure every shift. Continue to monitor for any tachycardia or bradycardia arrhythmias. We will also request a d-dimer be performed. Decrease aspirin to 81 mg daily. Further recommendations to follow. DNP note has been reviewed, I agree with a documented findings and plan of care. Patient was seen and examined.
[2020-01-03] MEDS ORDERED: ASPIRIN 325 MG TAB PO SCH (09:00)
[2020-01-03] MEDS: ASPIRIN 81 MG PO SCH (09:08)
--- NOTE | 2020-01-03 12:33 | NM ---
EXAMINATION TYPE: NM pul perfusion DATE OF EXAM: 01/03/2020 COMPARISON: NONE HISTORY: Shortness of breath Following administration of 5.3 mCi Tc 99m MAA. Images obtained post injection. FINDINGS: Diffusion in the lungs is normal. There are no perfusion defects. Ventilation was not perfo rmed. IMPRESSION: Normal perfusion study.
--- NOTE | 2020-01-03 14:05 | P.HPIM ---
History of Present Illness H&P Date: 01/03/20 Chief Complaint: Dizzy History of presenting complaint: This is a very pleasant [address] Henry. Chronic stable medical conditions include hypertension, hyperlipidemia, obesity. Patient yesterday had an episode where his vision became blurry: Dizzy lightheaded. Loss of about 5 minutes. Decided to go down to the [facility]. He had episode of nearly passing out. No chest pain no palpitation. No change in speech headache or any focal weakness. No tongue biting or incontinence. He was transferred down here. At the transferring hospital.-some troponin leak. No palpitations. Given IV fluids. Also renal function has been off Review of systems: GEN.: Tired EYES: As above HEENT: None NECK: None RESPIRATORY: None CARDIOVASCULAR: None GASTROINTESTINAL: None GENITOURINARY: None MUSCULOSKELETAL: None LYMPHATICS: None HEMATOLOGICAL: None PSYCHIATRY: None NEUROLOGICAL: No focal Past medical history to include: Hypertension, hyperlipidemia, TIA, obesity Social history: Doesn't smoke. Alcohol occasionally. . Retired [employer] Family history: Reviewed, noncontributory to presentation Physical examination: VITAL SIGNS: 98, 84, 20, 94/65, 97% on room air-upon presentation GENERAL: BMI 31.5, laying in bed after bowel. EYES: Pupils equal. Conjunctiva normal. HEENT: External appearance of nose and ears normal, oral cavity grossly normal. NECK: JVD not raised; masses not palpable. HEART: First and second heart sounds are normal; no edema. LUNGS: Respiratory rate normal; clear to auscultation. ABDOMEN: Soft, nontender, liver spleen not palpable, no masses palpable. PSYCH: Alert and oriented x3; mood and affect normal. NEUROLOGICAL: Cranial nerves grossly intact; no facial asymmetry, power and sensation grossly intact. LYMPHATICS: No lymph nodes palpable in the axilla and neck INVESTIGATIONS, reviewed in the clinical context: White count 14 hemoglobin 11.5 repeat 10.5 potassium 4.7 bun 74 creatinine 2.34 This morning-bun 62 creatinine 1.80 Labs from October 31-bun 44 creatinine 1.67 Troponin I 0.055, 0.035 EKG tracing personally reviewed by me-normal sinus rhythm nonspecific findings Assessment: -This patient presents with one-day history of bloody dizzy lightheaded and weak tired likely from acute kidney injury. Patient has no focal neurological symptoms. No chronic symptoms. IV hydration slowly making him feel better. -Acute kidney injury, prerenal -Chronic kidney disease suspect nephrosclerosis with a baseline creatinine of 1.6 -Essential hypertension -Hyperlipidemia -Obesity BMI 31.5 -Reactive hypotension on presentation for volume depletion -Troponin leak in the setting of renal failure, with no evidence of acute coronary coronary syndrome. No chest pain Plan: Patient's Zestoretic has been held. Continue with aspirin. Renal function is improving.. No need for any further neurological testing. Repeat labs in the morning. Cardiology was consulted. Past Medical History Past Medical History: Hyperlipidemia, Hypertension History of Any Multi-Drug Resistant Organisms: None Reported Past Surgical History: Orthopedic Surgery Additional Past Surgical History / Comment(s): shoulder, knee Past Psychological History: No Psychological Hx Reported Smoking Status: Never smoker Past Alcohol Use History: Occasional Past Drug Use History: None Reported Medications and Allergies Home Medications Medication Instructions Recorded Confirmed Type Atorvastatin [Lipitor] 40 mg PO HS 02/02/15 01/02/20 History Clopidogrel [Plavix] 75 mg PO DAILY 02/02/15 01/02/20 History Lisinopril-Hctz 20-25 mg 1 tab PO DAILY 02/02/15 01/02/20 History [Zestoretic 20-25] Aspirin [Adult Low Dose Aspirin EC] 81 mg PO DAILY 11/06/19 01/02/20 History Allergies Allergy/AdvReac Type Severity Reaction Status Date / Time No Known Allergies Allergy Verified 01/02/20 20:09 Physical Exam Vitals: Vital Signs Temp Pulse Pulse Resp BP BP Pulse Ox 01/03/20 08:00 97.5 F L 83 20 93/56 98 01/03/20 04:36 18 01/03/20 04:00 97.9 F 62 18 91/49 98 01/03/20 00:38 18 01/02/20 22:48 97.4 F L 67 18 98/50 97 01/02/20 21:39 97.9 F 86 15 111/72 97 01/02/20 19:59 98.1 F 68 15 94/65 97 01/02/20 18:00 79 19 106/74 96 01/02/20 17:28 98.0 F 84 20 121/78 98 Intake and Output 01/02/20 01/03/20 01/03/20 22:59 06:59 14:59 Intake Total 240 Balance 240 Intake: Oral 240 Other: Voiding Method Toilet # Voids 2 Weight 97.522 kg Results CBC & Chem 7: 01/03/20 06:30 01/03/20 05:52 Labs: Abnormal Lab Results - Last 24 Hours (Table) 01/02/20 01/02/20 01/02/20 Range/Units 17:55 17:55 17:55 WBC 14.0 H (3.8-10.6) k/uL RBC 4.00 L (4.30-5.90) m/uL Hgb 11.5 L (13.0-17.5) gm/dL Hct 35.5 L (39.0-53.0) % Neutrophils # 10.5 H (1.3-7.7) k/uL APTT 21.8 L (22.0-30.0) sec D-Dimer (<0.60) mg/L FEU Sodium 135 L (137-145) mmol/L Chloride (98-107) mmol/L Carbon Dioxide 18 L (22-30) mmol/L BUN 74 H (9-20) mg/dL Creatinine 2.34 H (0.66-1.25) mg/dL Calcium (8.4-10.2) mg/dL Troponin I (0.000-0.034) ng/mL HDL Cholesterol (40-60) mg/dL Lipase 1090 H (23-300) U/L 01/02/20 01/02/20 01/03/20 Range/Units 17:55 23:40 05:52 WBC (3.8-10.6) k/uL RBC (4.30-5.90) m/uL Hgb (13.0-17.5) gm/dL Hct (39.0-53.0) % Neutrophils # (1.3-7.7) k/uL APTT (22.0-30.0) sec D-Dimer (<0.60) mg/L FEU Sodium (137-145) mmol/L Chloride (98-107) mmol/L Carbon Dioxide (22-30) mmol/L BUN (9-20) mg/dL Creatinine (0.66-1.25) mg/dL Calcium (8.4-10.2) mg/dL Troponin I 0.052 H* 0.055 H* 0.035 H* (0.000-0.034) ng/mL HDL Cholesterol (40-60) mg/dL Lipase (23-300) U/L 01/03/20 01/03/20 01/03/20 Range/Units 05:52 06:30 08:55 WBC (3.8-10.6) k/uL RBC 3.64 L (4.30-5.90) m/uL Hgb 10.5 L (13.0-17.5) gm/dL Hct 32.4 L (39.0-53.0) % Neutrophils # (1.3-7.7) k/uL APTT (22.0-30.0) sec D-Dimer 3.56 H (<0.60) mg/L FEU Sodium 136 L (137-145) mmol/L Chloride 108 H (98-107) mmol/L Carbon Dioxide 19 L (22-30) mmol/L BUN 62 H (9-20) mg/dL Creatinine 1.80 H (0.66-1.25) mg/dL Calcium 8.3 L (8.4-10.2) mg/dL Troponin I (0.000-0.034) ng/mL HDL Cholesterol 35 L (40-60) mg/dL Lipase (23-300) U/L Thrombosis Risk Factor Assmnt - Choose All That Apply Each Risk Factor Represents 3 Points: Age 75 years or older Thrombosis Risk Factor Assessment Total Risk Factor Score: 3 Thrombosis Risk Factor Assessment Level: Moderate Risk
[2020-01-03] MEDS: SODIUM BICARBONATE TAB 650 MG TAB PO SCH ×2 (15:12→20:07)
--- NOTE | 2020-01-03 15:42 | ECHOF ---
Referral Reason:dizziness MEASUREMENTS -------- HEIGHT: 175.3 cm WEIGHT: 97.5 kg BP: 93/56 RVIDd: 3.5 cm (< 3.3) IVSd: 1.6 cm (0.6 - 1.1) LVIDd: 4.2 cm (3.9 - 5.3) LVPWd: 1.4 cm (0.6 - 1.1) IVSs: 2.2 cm LVIDs: 2.8 cm LVPWs: 1.7 cm LAESV Index (A-L): 17.41 ml/m Ao Diam: 3.0 cm (2.0 - 3.7) AV Cusp: 1.8 cm (1.5 - 2.6) MV E Abhijeet: 0.59 m/s MV DecT: 243 ms MV A Abhijeet: 0.62 m/s MV E/A Ratio: 0.95 AV maxP.91 mmHg AV meanP.98 mmHg RAP: 5.00 mmHg RVSP: 22.11 mmHg FINDINGS -------- Sinus rhythm. This was a technically adequate study. The left ventricular size is normal. There is moderate concentric left ventricular hypertrophy. T here is normal global left ventricular contractility. Overall left ventricular systolic function is normal with, an EF between 60 - 65 %. Moderate SANDEE with peak LVOT gradient of 35.65mmHg. The laurel stolic filling pattern is normal for the age of the patient 11.09. Lvot Obstruction. The right ventricle is mildly enlarged. Normal LA size by volume 22+/-6 ml/m2. The right atrial size is normal. Interatrial and interventricular septum intact. There is moderate aortic valve sclerosis. There is no evidence of aortic regurgitation. There is mild aortic stenosis present. Mild mitral regurgitation is present. Mild tricuspid regurgitation present. There is no evidence of pulmonary hypertension. The right v entricular systolic pressure, as measured by Doppler, is 22.11mmHg. There is no pulmonic regurgitation present. The aortic root size is normal. IVC Not well visulized. There is no pericardial effusion. CONCLUSIONS -------- 1. Sinus rhythm. 2. This was a technically adequate study. 3. The left ventricular size is normal. 4. There is moderate concentric left ventricular hypertrophy. 5. There is normal global left ventricular contractility. 6. Overall left ventricular systolic function is normal with, an EF between 60 - 65 %. 7. Moderate SANDEE with peak LVOT gradient of 35.65mmHg. 8. The diastolic filling pattern is normal for the age of the patient 11.09 9. Lvot Obstruction. 10. The right ventricle is mildly enlarged. 11. Normal LA size by volume 22+/-6 ml/m2. 12. The right atrial size is normal. 13. Interatrial and interventricular septum intact. 14. There is moderate aortic valve sclerosis. 15. There is no evidence of aortic regurgitation. 16. There is mild aortic stenosis present. 17. Mild mitral regurgitation is present. 18. Mild tricuspid regurgitation present. 19. There is no evidence of pulmonary hypertension. 20. The right ventricular systolic pressure, as measured by Doppler, is 22.11mmHg. 21. There is no pulmonic regurgitation present. 22. The aortic root size is normal. 23. IVC Not well visulized. 24. There is no pericardial effusion. PANCAKE PROFESSIONAL: Daysi Castillo RDCS
[2020-01-04 06:30] LABS: Calcium 8.8 mg/dL (8.4-10.2); Potassium 4.9 mmol/L (3.5-5.1)
[2020-01-04] MEDS: SODIUM BICARBONATE TAB 650 MG TAB PO SCH (08:02)
[2020-01-04] MEDS: ASPIRIN 81 MG PO SCH (08:02)
[2020-01-04 08:14] VITALS: TEMP 98.2
--- NOTE | 2020-01-04 12:56 | P.PN ---
Subjective Progress Note Date: 01/04/20 This is a pleasant 74-year-old gentleman with history of hypertension, hyperlipidemia, BPH, GERD, osteoarthritis, obstructive sleep apnea, prior TIA, nonsmoker, who presented to [facility] with symptoms of blurred vision he denies any overt dizziness or lightheadedness, no shortness of breath, no chest discomfort, no palpitations. Patient states he does get a lightheaded feeling when he goes from a sitting to standing position too quickly but he states that he's been experiencing this for several years. Patient does state that he underwent right knee surgery in November of this year. Overall the patient states he's been eating well at home, but has not been drinking enough fluids, he denies any diarrhea, no vomiting. His blood pressure on presentation to [facility] was 70/40 with a heart rate in the 100, afebrile, lab data from [facility], sodium 136, potassium 4.5, chloride 101, CO2 20, glucose 142, BUN 73, creatinine 2.6, white blood cell count 15.6, hemoglobin 11.7, hematocrit 35.7, platelet count 333. Magnesium 1.8, troponin 0.043, chest x-ray did not reveal any acute process. EKG on presentation here showed a normal sinus rhythm with peaked T waves. Lab data performed on arrival here, white blood cell count 14, 10.2 this morning, hemoglobin 11.5, 10.5 this morning, platelet count 260. Sodium 135, potassium 4.7, BUN 74, creatinine 2.3, magnes ium 1.9. Troponin 0.052, 0.055, 0.035. Lipase 1090. AST and ALT are normal. This morning's labs after hydration, sodium 136, potassium 4.6, BUN 62, creatinine 1.8. Blood pressure this morning 92/56 with a heart rate in the 80s, 98% on room air. 01/04/2020 Patient was seen and examined this morning, he feels well, denies any chest pain, no dizziness or lightheadedness. Blood pressure 105/50 with a heart rate in the 80s, 97% on room air. Sodium 134, potassium 4.9, BUN 44, creatinine 1.4. An echocardiogram with Doppler study was performed which revealed an ejection fraction of 60-65%. Moderate SANDEE with a peak LVOT gradient of 35.6. LVOT obstruction. Lung perfusion scan negative for PE. Blood pressure 105/60 with a heart rate in the 80s, 97% on room air. Objective - Vital Signs Vital signs: Vital Signs Temp 98.2 F 01/04/20 08:00 Pulse 86 01/04/20 08:00 Resp 20 01/04/20 08:00 BP 105/51 01/04/20 08:00 Pulse Ox 97 01/04/20 08:00 Intake & Output 01/03/20 01/04/20 01/04/20 18:59 06:59 18:59 Intake Total 1520 Output Total 400 Balance 1520 -400 Weight 99.5 kg Intake: IV 800 Sodium Chloride 0.9% 1, 800 000 ml @ 100 mls/hr IV . Q10H MYLES Rx#:[id number] Oral 720 Output: Urine 400 Other: Voiding Method Toilet Toilet # Voids 1 # Bowel Movements 0 - Exam PHYSICAL EXAMINATION: GENERAL: 74-year-old gentleman in no acute distress at the time of my examination HEENT: Head is atraumatic, normocephalic. Pupils equal, round. Sclera anicteric. Conjunctiva are clear. Mucous membranes of the mouth are moist. Neck is supple. There is no elevated jugular venous pressure. No carotid bruit is heard. HEART EXAMINATION: Heart S1 S2 normal CHEST EXAMINATION: Lungs are clear to auscultation and precussion. No chest wall tenderness is noted on palpation or with deep breathing. ABDOMEN: Soft, nontender. Bowel sounds are heard. No organomegaly noted. EXTREMITIES: 2+ peripheral pulses with no evidence of peripheral edema and no calf tenderness noted. NEUROLOGIC patient is awake, alert and oriented 3 . - Labs CBC & Chem 7: 01/03/20 06:30 01/04/20 05:32 Labs: Abnormal Lab Results - Last 24 Hours (Table) 01/04/20 Range/Units 05:32 Sodium 134 L (137-145) mmol/L Carbon Dioxide 20 L (22-30) mmol/L BUN 44 H (9-20) mg/dL Creatinine 1.40 H (0.66-1.25) mg/dL Assessment and Plan Plan: Assessment and plan #1 symptoms of blurred vision with no associated dizziness or lightheadedness #2 hypotension could be secondary to dehydration #3 renal insufficiency, likely secondary to dehydration #4 hypertension #5 hyperlipidemia #6 obstructive sleep apnea #7 recent right knee surgery in November of this year #8 GERD #9 prior TIA #10 abnormal troponins, could be secondary to abnormal renal function Plan Echocardiogram with Doppler study revealed a normal left ventricular systolic function with evidence of LVOT obstruction we will start the patient on a small dose of beta susan. He may be able to be discharged home from our perspective. He's been encouraged to drink enough fluids. DNP note has been reviewed, I agree with a documented findings and plan of care. Patient was seen and examined.
[2020-01-04 13:11] VITALS: BP 119/62; PULSE 80; RESP 16
[2020-01-04] MEDS ORDERED: METOPROLOL TARTRATE 25 MG TAB PO SCH (13:30)
--- NOTE | 2020-01-05 23:41 | P.DS ---
Providers Date of admission: 01/02/20 19:38 Expected date of discharge: 01/04/20 Attending physician: Jimy Morales Consults: 01/02/20 19:38 Consult Physician Urgent Consulting Provider: Marcy Medina Consult Reason/Comments: cp Do you want consulting provider notified?: Yes Primary care physician: [facility] Course: Chief Complaint: Dizzy History of presenting complaint: This is a very pleasant [address] Henry. Chronic stable medical conditions include hypertension, hyperlipidemia, obesity. Patient yesterday had an episode where his vision became blurry: Dizzy lightheaded. Loss of about 5 minutes. [facility] He had episode of nearly passing out. No chest pain no palpitation. No change in speech headache or any focal weakness. No tongue biting or incontinence. He was transferred down here. At the transferring hospital.-some troponin leak. No palpitations. Given IV fluids. Also renal function has been off Admitted with syncope. Beggs to be dehydration from acute kidney injury. Given IV fluids. BUN and creatinine on admission was 74/2.34. At the time discharge back to baseline at 44/1.40. Patient feeling back to his usual self. At baseline. Feeling well. Consultation: Dr. Santoro from cardiology Physical examination: VITAL SIGNS: 98.2, 80, 16, 11 , 96% room air GENERAL: Sitting up, comfortable EYES: Pupils equal. Conjunctiva normal. HEENT: External appearance of nose and ears normal, oral cavity grossly normal. NECK: JVD not raised; masses not palpable. HEART: First and second heart sounds are normal; no edema. LUNGS: Respiratory rate normal; clear to auscultation. ABDOMEN: Soft, nontender, liver spleen not palpable, no masses palpable. PSYCH: Alert and oriented x3; mood and affect normal. INVESTIGATIONS, reviewed in the clinical context: Potassium 4.9 bun 44 creatinine 1.40 Previous testing White count 14 hemoglobin 11.5 repeat 10.5 potassium 4.7 bun 74 creatinine 2.34 This morning-bun 62 creatinine 1.80 Labs from October 31-bun 44 creatinine 1.67 Troponin I 0.055, 0.035 EKG tracing personally reviewed by me-normal sinus rhythm nonspecific findings 2-D echo-EF 60-65%, moderate aortic valve sclerosis moderate RAUL Assessment: -Syncope from dehydration, POA -Acute kidney injury, prerenal, POA -Chronic kidney disease suspect nephrosclerosis with a baseline creatinine of 1.6 -Essential hypertension -Hyperlipidemia -Obesity BMI 31.5 - hypotension on presentation for volume depletion -Troponin leak in the setting of renal failure, with no evidence of acute coronary coronary syndrome. -Hypertensive heart disease Disposition: Home Patient Condition at Discharge: Stable Plan - Discharge Summary New Discharge Prescriptions: New Metoprolol Tartrate [Lopressor] 12.5 mg PO BID #60 dose Sodium Bicarbonate Tab 650 mg PO TID #15 tab Continue Clopidogrel [Plavix] 75 mg PO DAILY Atorvastatin [Lipitor] 40 mg PO HS Aspirin [Adult Low Dose Aspirin EC] 81 mg PO DAILY Discontinued Lisinopril-Hctz 20-25 mg [Zestoretic 20-25] 1 tab PO DAILY Discharge Medication List Atorvastatin [Lipitor] 40 mg PO HS 02/02/15 [History] Clopidogrel [Plavix] 75 mg PO DAILY 02/02/15 [History] Aspirin [Adult Low Dose Aspirin EC] 81 mg PO DAILY 11/06/19 [History] Metoprolol Tartrate [Lopressor] 12.5 mg PO BID #60 dose 01/04/20 [Rx] Sodium Bicarbonate Tab 650 mg PO TID #15 tab 01/04/20 [Rx] Follow up Appointment(s)/Referral(s): Micky Henry MD [Primary Care Provider] - 1 Week (CALL OFFICE ON SUNDAY AM FOR APPOINTMENT TIME) Leonardo Fisher MD [STAFF PHYSICIAN] - 2 Weeks (Patient would rather see patient in [place] than [place]. Lives in [place] CALL OFFICE ON SUNDAY AM FOR APPOINTMENT TIME) Patient Instructions/Handouts: Acute Kidney Injury (DC) Discharge Disposition: HOME SELF-CARE
== END 2020-01-04 14:58 | disposition home or self-care (01) | DRG 641 ==
LOC: EC 17:15 → 1SOBS 19:38 → 3SCARD 19:38 → UNDOADMOB 19:38 → 3SCARD 20:53
PROVIDERS: ADMIT Hospitalist; ATTEND Hospitalist
DX: E86.0 Dehydration (principal); N17.9 Acute kidney failure, unspecified; E66.9 Obesity, unspecified; E78.5 Hyperlipidemia, unspecified; G47.33 Obstructive sleep apnea (adult) (pediatric); I13.10 Hypertensive heart and chronic kidney disease without heart failure, with stage 1 through stage 4 chronic kidney disease, or unspecified chronic kidney disease; K21.9 Gastro-esophageal reflux disease without esophagitis; N18.9 Chronic kidney disease, unspecified; N40.0 Benign prostatic hyperplasia without lower urinary tract symptoms; Z68.31 Body mass index [BMI] 31.0-31.9, adult; Z79.02 Long term (current) use of antithrombotics/antiplatelets; Z79.82 Long term (current) use of aspirin; Z79.899 Other long term (current) drug therapy; Z86.73 Personal history of transient ischemic attack (TIA), and cerebral infarction without residual deficits; I95.9 Hypotension, unspecified; R79.89 Other specified abnormal findings of blood chemistry
CPT/HCPCS: 36415; 78580; 80048; 80053; 80061; 83690; 83735; 83880; 84484; 85025; 85027; 85379; 85610; 85730; 93005; 93306; 96360; 96361; 99291